=== PATIENT | male | born 1955 | race Caucasian/White ===

== ENCOUNTER 2022-05-17 07:09 | Day surgery (SDC) | payer MEDICARE ==
[~2022-05-17 07:09] MED LIST: Lactated Ringers 1,000 ML IV SCH
[2022-05-17] MEDS ORDERED: Propofol 200 MG/20 ML SDV ONE ×2 (08:58→08:59)
[2022-05-17] MEDS ORDERED: Lidocaine 2% 5 ML SDV ONE (08:59)
[2022-05-17] MEDS ORDERED: Lactated Ringers 1,000 ML IV SCH (09:45)
== END 2022-05-17 10:35 | disposition home or self-care (01) ==
LOC: MW.SDS 07:09
PROVIDERS: ATTEND Surgery
DX: R19.4 Change in bowel habit (principal); K64.8 Other hemorrhoids; I10 Essential (primary) hypertension; M17.0 Bilateral primary osteoarthritis of knee; Z79.899 Other long term (current) drug therapy; Z98.890 Other specified postprocedural states; Z87.891 Personal history of nicotine dependence
CPT/HCPCS: 45378; J2704; J7120; 00811